=== PATIENT | male | born 1975 | race African-American/Black ===

== ENCOUNTER → 2020-09-30 | Outpatient (CLI) | payer OTHER ==
--- NOTE | 2020-09-30 15:37 | 2DMMODE ---
[place] [address] 2 D/M-MODE ECHOCARDIOGRAM Name: GOMEZCAREY Tanja Room: [facility]#: [id number] Admission: 09/30/20 Attend Phys: Gilbert Rojas MD Discharge: Date of : 79 Date of Service: 09/30/20 1537 Report #: [id number] THIS REPORT FOR: cc: Physician not on staff Physician not on staff Stephon Wooten MD [facility] ~ APPROVED REPORT Study performed: 09/30/2020 11:12:48 EXAM: Comprehensive 2D, Doppler, and color-flow Echocardiogram Patient Location: Out-Patient BSA: 2.48 HR: 88 bpm BP: 130/80 mmHg Other Information Study Quality: Fair Indications SVT 2D Dimensions IVSd: 13.02 (7-11mm) LVOT Diam: 20.92 (18-24mm) LVDd: 47.72 mm PWd: 9.14 (7-11mm) Ascending Ao: 27.07 (22-36mm) LVDs: 25.58 (25-40mm) Aortic Root: 24.63 mm Volumes Left Atrial Volume (Systole) LA ESV Index: 15.00 mL/m2 Aortic Valve AoV Peak Gilberto.: 1.77 m/s AO Peak Gr.: 12.56 mmHg LVOT Max P.72 mmHg AO Mean Gr.: 6.56 mmHg LVOT Mean P.01 mmHg LVOT Max V: 1.48 m/s AO V2 VTI: 26.48 cm LVOT Mean V: 0.91 m/s SELMA (VTI): 3.31 cm2 LVOT V1 VTI: 25.48 cm Mitral Valve E/A Ratio: 1.07 [place] [address] 2 D/M-MODE ECHOCARDIOGRAM Name: CAREY GOMEZ Room: [facility]#: [id number] Admission: 09/30/20 Attend Phys: Gilbert Rojas MD Discharge: Date of : 79 Date of Service: 09/30/20 1537 Report #: [id number] MV Decel. Time: 308.72 ms MV E Max Gilberto.: 0.61 m/s MV PHT: 89.53 ms MVA (PHT): 2.46 cm2 TDI E/Lateral E': 5.08 E/Medial E': 7.63 Medial E' Gilberto.: 0.08 m/s Lateral E' Gilberto.: 0.12 m/s Pulmonary Valve PV Peak Gilberto.: 1.19 m/s PV Peak Gr.: 5.70 mmHg Tricuspid Valve RAP Estimate: 5.00 mmHg TR Peak Gr.: 28.14 mmHg RVSP: 33.14 mmHg PA Pressure: 33.14 mmHg Left Ventricle The left ventricle is normal size. There is normal LV segmental wall motion. There is normal left ventricular wall thickness. Left ventricular systolic function is normal. LVEF is 70%. Left ventricular filling pattern is normal for age. Right Ventricle The right ventricle is normal size. The right ventricular systolic function is normal. Atria The left atrium size is normal. The right atrium size is normal. Aortic Valve The aortic valve is normal in structure. No aortic regurgitation is present. There is no aortic valvular stenosis. Mitral Valve The mitral valve is normal in structure. There is no mitral valve regurgitation noted. No evidence of mitral valve stenosis. Tricuspid Valve The tricuspid valve is normal in structure. Mild tricuspid regurgitation. No pulmonary hypertension. Pulmonic Valve The pulmonary valve is normal in structure. [place] [address] 2 D/M-MODE ECHOCARDIOGRAM Name: CAREY GOMEZ Room: [facility]#: [id number] Admission: 09/30/20 Attend Phys: Gilbert Rojas MD Discharge: Date of : 79 Date of Service: 09/30/20 1537 Report #: [id number] regurgitation. Great Vessels The aortic root is normal in size. IVC is normal in size and collapses >50% with inspiration. Pericardium There is no pericardial effusion. <Conclusion> The left ventricle is normal size. There is normal left ventricular wall thickness. Left ventricular systolic function is normal. LVEF is 70%. Left ventricular filling pattern is normal for age. Mild tricuspid regurgitation. No pulmonary hypertension. Mild pulmonic regurgitation. IVC is normal in size and collapses >50% with inspiration. <ELECTRONICALLY SIGNED> By: Stephon Wooten MD, FACC 09/30/20 1537 1537 1537 Stephon Wooten MD, FACC /INF
== END ==
LOC: M.CRD 09-23 11:00 → EDBD 09-23 11:00 → M.CRD 11:00
PROVIDERS: ATTEND Orthopaedic Surgery
DX: I08.8 Other rheumatic multiple valve diseases (principal)